=== PATIENT | male | born 1975 | race African-American/Black ===

== ENCOUNTER 2023-09-01 10:54 | Emergency (ER) | payer SELFPAY ==
[~2023-09-01] VITALS: Ht 182.9 cm; Wt 125.0 kg
[2023-09-01 11:20] VITALS: BP 118/63; PULSE 88; RESP 18; O2SAT 98
[2023-09-01] MEDS ORDERED: IBUP-1456 PO (20:42)
[2023-09-01] MEDS ORDERED: AMOX875T4 PO (20:42)
[2023-09-01] MEDS ORDERED: methylPREDNISolone SOD SUCC 125 MG/2 ML VL IM ONE (20:45)
[2023-09-01] MEDS ORDERED: cefTRIAXone SOD 1,000 MG VL IM ONE (20:45)
== END 2023-09-01 23:59 | disposition home or self-care (01) ==
LOC: ER 10:54
DX: J03.90 Acute tonsillitis, unspecified (principal)
CPT/HCPCS: 96372; 99284; J0696; J2930

== ENCOUNTER 2024-03-28 03:55 | Emergency (ER) | payer MEDICAID, OTHER ==
[~2024-03-28 03:55] MED LIST: AMOX875T4 PO; IBUP-1456 PO
[2024-03-28 05:40] VITALS: BP 92/60; PULSE 85; RESP 16; TEMP 98.7; O2SAT 99
== END 2024-03-28 05:40 | disposition home or self-care (01) ==
LOC: EDSEX 03:55 → ER 03:55 → EDBD 03:55 → ER 05:40
DX: S81.812A Laceration without foreign body, left lower leg, initial encounter (principal); W22.8XXA Striking against or struck by other objects, initial encounter; Y93.89 Activity, other specified; Y92.89 Other specified places as the place of occurrence of the external cause; Y99.8 Other external cause status
CPT/HCPCS: 12002

== ENCOUNTER 2025-05-06 10:05 | Emergency (ER) | payer MEDICAID ==
[~2025-05-06] VITALS: Ht 86.4 cm; Wt 21.1 kg
[2025-05-06] MEDS ORDERED: CEPH250S PO (10:32)
--- NOTE | 2025-05-06 10:35 | ED.PDOC ---
HPI Comments A 7 YEAR OLD FEMALE BROUGHT IN BY PARENT PRESENTS TO THE ED WITH COMPLAINT OF LACERATION TO LEFT FACIAL AREA LATERAL TO EYEBROW. PATIENTS MOTHER REPORTS THAT PATIENT DISCLOSED TO HER THAT A PLANTER FELL ON HER HEAD AND CREATED A LACERATION. PATIENT HAS A 4CM LACERATION ON HER LATERAL LEFT EYEBROW. PATIENT'S PARENT DENIES FEVER, CHILLS, EAR PULLING, COUGH, CHANGES IN BEHAVIOR, DECREASE IN APPETITE, DECREASE IN URINARY OUTPUT, NAUSEA, VOMITING, OR OTHER COMPLAINTS. NO OTHER SYMPTOMS OR MODIFYING FACTORS AT THIS TIME. AT TIME OF EXAM, PATIENT IS ALERT, ACTIVE, AND PLAYFUL. Chief Complaint: Laceration Time Seen by MD: 10:25 Primary Care Provider: NONE Reviewed Notes: Nurses Notes, Medications, Allergies Allergies: Coded Allergies: NO KNOWN ALLERGIES (Unverified , 09/01/23) Home Meds Active Scripts Cephalexin (Cephalexin) 250 Mg/5 Ml Sanaz, 10 ML PO BID, #160 ML Prov:LUPE DINH 05/06/25 Ibuprofen (Ibuprofen) 800 Mg Tab, 1 TAB PO TID PRN, #30 TAB 0 Refills Prov:VIGNESH WHELAN 09/01/23 Amoxicillin & Pot Clavulanate (Amoxicillin/Potassium Cla) 875 Mg Tab, 1 TAB PO BID for 7 Days, #14 TAB 0 Refills Prov:VIGNESH WHELAN 09/01/23 Information Source: Patient, Legal Guardian Mode of Arrival: Ambulatory Severity: Moderate Severity of Laceration: Controlled Bleeding Complexity: Simple Timing: Hours Prehospital treatment: None Laceration Location: Face Mechanism: Direct Blow Last Tetanus: UTD Laceration Length (cm): 4 Skin Type: Linear Depth of Injury: Skin Tender: Moderate Discharge: Bloody Erythema: Localized to Wound Edges Associated Signs and Symptoms: None Past Medical History Pediatric Medical History: Denies Immunizations: Current Medical History: Denies Operations: Denies Family History Family History: Reviewed,noncontributory to illness, Unknown Social History Smoking: Non-Smoker Alcohol: Denies ETOH Use Drugs: Denies Drug Use Lives In: Home Constitutional: denies: chills, diaphoresis, fatigue, fever, malaise, sweats, weakness, others EENTM: denies: blurred vision, double vision, ear bleeding, ear discharge, ear drainage, ear pain, ear ringing, eye pain, eye redness, hearing loss, mouth pain, mouth swelling, nasal discharge, nose bleeding, nose congestion, nose pain, photophobia, tearing, throat pain, throat swelling, voice changes, others Respiratory: denies: cough, hemoptysis, orthopnea, SOB at rest, shortness of breath, SOB with excertion, stridor, wheezing, others Cardiovascular: denies: chest pain, dizzy spells, diaphoresis, Dyspnea on exertion, edema, irregular heart beat, left arm pain, lightheadedness, palpitations, PND, syncope, others Gastrointestinal: denies: abdomen distended, abdominal pain, blood streaked bowels, constipated, diarrhea, dysphagia, difficulty swallowing, hematemesis, melena, nausea, poor appetite, poor fluid intake, rectal bleeding, rectal pain, vomiting, others Genitourinary: denies: abnormal vagina bleeding, burning, dyspareunia, dysuria, flank pain, frequency, hematuria, incontinence, pain, , vagina discharge, urgency, others Neurological: denies: dizziness, fainting, headache, left sided numbness, left sided weakness, numbness, paresthesia, pre-existing deficit, right sided numbness, right sided weakness, seizure, speech problems, tingling, tremors, weakness, others Musculoskeletal: denies: back pain, gout, joint pain, joint swelling, muscle pain, muscle stiffness, neck pain, others Integumetry: reports: laceration (LEFT FACE); denies: bruises, change in color, change in hair/nails, dryness, lesions, lumps, rash, wounds, others Allergic/Immunocompromised: denies: Difficulty Healing, Frequent Infections, Hives, Itching, others Hematologic/Lymphatic: denies: anemia, blood clots, easy bleeding, easy bruising, swollen glands, others Endocrine: denies: excessive hunger, excessive sweating, excessive thirst, excessive urination, flushing, intolerance to cold, intolerance to heat, unexplained weight gain, unexplained weight loss, others Psychiatric: denies: anxiety, bipolar disorder, depression, hopeless, panic disorder, schizophrenia, sleepless, suicidal, others All Other Systems: Reviewed and Negative Physical Exam General Appearance: No Apparent Distress, Normal HEENT: Normal ENT Inspection, PERRL/EOMI, Pharynx Normal, TMs Normal Neck: Full Range of Motion, Non-Tender, Normal, Normal Inspection Respiratory: Chest Non-Tender, Lungs Clear, No Accessory Muscle Use, No Respiratory Distress, Normal Breath Sounds Cardiovascular: No Edema, No JVD, No Murmur, No Gallop, Normal Peripheral Pulses, Regular Rate/Rhythm Breast Exam: Deferred Gastrointestinal: No Organomegaly, Non Tender, No Pulsatile Mass, Normal Bowel Sounds, Soft Genitalia: Deferred Pelvic: Deferred Rectal: Deferred Extremities: No calf tenderness, Normal capillary refill, Normal inspection, Normal range of motion, Non-tender, No pedal edema Musculoskeletal : Apperance: Normal Neurologic: Alert, k 9 police officer II-XII nml as Tested, No Motor Deficits, Normal Affect, Normal Mood, No Sensory Deficits Cerebellar Function: Normal Reflexes: Normal Skin: Dry, Lacerations (4CM LACERATION ON LEFT SIDE FACE, NO DEEP LACERATION, NO BLEEDING AND BLOOD CLOTS, NO FACIAL SWELLING. ), Normal Color, Warm Peripheral Pulses: 2+ carotid (R), 2+ carotid (L) Lymphatic: No Adenopathy Was a procedure done? Was a procedure done?: Yes Sedation Sedation?: No Laceration Repair : Location LEFT FACE Length 4CM Anesthetic: Lidocaine Laceration Repair Prep: Saline, by Irrigation Laceration Repair Wound Comple: epidermis/dermis repair Laceration Repair: Number of sutures (7), SQ, Size (5-0), Simple, Gauze Informed consent obtained: No Risks, benefits, and alternati: Yes Images 1 - Differential diagnosis Generic Laceration: Laceration, Avulsion X-Ray, Labs, Meds, VS Vital Signs Date Time Temp Pulse Resp B/P (MAP) Pulse Ox O2 Delivery O2 Flow Rate FiO2 05/06/25 10:40 98.0 124 20 120/70 (87) 100 98.0 05/06/25 10:40 124 20 100 Room Air 05/06/25 10:07 98.0 124 20 120/70 100 98.0 X-Ray, Labs, Meds, VS Comment EXTERNAL MEDICAL RECORDS REVIEWED: [NONE] INDEPENDENT HISTORIANS: [NONE] SOCIAL DETERMINANTS OF HEALTH: [NONE] LABS ORDERED: NONE REVIEWED AND INTERPRETED RESULTS: NONE IMAGING ORDERED: NONE TREATMENTS ORDERED: LACERATION REPAIR PROCEDURES PERFORMED: 4CM LACERATION REPAIR WITH 8 STITCHES CRITICAL CARE TIME: NONE I HAVE DISCUSSED THE PATIENT WITH THE ATTENDING PHYSICIAN, DR. CESIA HILLIARD, AND SHE AGREES WITH THE PATIENT'S PLAN OF CARE AND DISPOSITION. BASED ON HISTORY OF PRESENT ILLNESS, AND PHYSICAL EXAM, PATIENT WILL BE DISCHARGED HOME. DISCUSSED PLAN FOR DISCHARGE HOME WITH RX [KEFLEX]. MEDICATION WARNINGS GIVEN. SHARED DECISION MAKING: DISCUSSED WITH PATIENT THAT THEIR WORKUP WAS NORMAL. PATIENT INSTRUCTED TO FOLLOW UP WITH PRIMARY CARE PROVIDER IN 1-2 DAYS FOR RE- EVALUATION OF SYMPTOMS. PATIENT VERBALIZES UNDERSTANDING TO RETURN TO ED FOR NEW OR WORSENING SYMPTOMS OR IF FOLLOW UP WITH PCP CANNOT BE OBTAINED. PATIENT FEELS COMFORTABLE GOING HOME AT THIS TIME. ALL QUESTIONS ADDRESSED AT TIME OF DISCHARGE. Time of 1ST Reevaluation: 10:32 Reevaluation 1ST: Improved Patient Education/Counseling: Diagnosis, Treatment, Need For Follow Up Family Education/Counseling: Diagnosis, Treatment, Need For Follow Up Medical Screening: No EMC Exist At This Time Departure 1 Departure Time of Disposition: 11:01 Impression: Primary Impression: Facial laceration Qualified Codes: S01.81XA - Laceration without foreign body of other part of head, initial encounter Disposition: HOME / SELF CARE / HOMELESS Condition: Stable Additional Instructions: FOLLOW-UP WITH PRICING/SIGNAGE TEAM MEMBER IN 1 TO 2 DAYS. TAKE MEDICATIONS PRESCRIBED. RETURN TO ED FOR ANY NEW OR WORSENING SYMPTOMS. e-Prescriptions Cephalexin (Cephalexin) 250 Mg/5 Ml Sanaz 10 ML PO BID, #160 ML Prov: LUPE DINH 05/06/25 Discharged With: Self, Relative, Legal Guardian Critical Care Note Critical Care Time?: No Stability Stability form required: No I personally scribed for LUPE DINH ([email or web address]) on 05/06/25 at 10:35. Electronically submitted by Kam Alcala ([email or web address]). LUPE DINH May 06, 2025 10:35
[2025-05-06 10:40] VITALS: BP 120/70; PULSE 124; RESP 20; TEMP 98; O2SAT 100
== END 2025-05-06 10:42 | disposition home or self-care (01) ==
LOC: ER 10:05
DX: S01.81XA Laceration without foreign body of other part of head, initial encounter (principal); X58.XXXA Exposure to other specified factors, initial encounter; Y93.89 Activity, other specified; Y92.89 Other specified places as the place of occurrence of the external cause; Y99.8 Other external cause status
CPT/HCPCS: 12013